=== PATIENT | female | born 1960 | race Caucasian/White ===

== ENCOUNTER → 2016-11-08 | Outpatient (CLI) | payer BC ==
--- NOTE | 2016-11-08 13:59 | RAD ---
HISTORY: Renal colic on left side Study: KUB Comparison: No priors Findings: Moderate stool is present in the right colon. No bowel obstruction is seen. There are surgical clips from cholecystectomy. A 2 millimeter calcific density is present just to the left of the midline low within the pelvis. This is likely vascular. Osseous structures are intact. IMPRESSION: No bowel obstruction seen. 2 millimeter calcific density is present just to the left of the midline low within the pelvis. This is likely vascular. Reported By:
--- NOTE | 2016-11-08 17:08 | CT ---
CT abdomen and pelvis without contrast Indication: Acute left lower quadrant pain Comparison: None available Technique: Multiple axial images of the abdomen and pelvis were obtained from the lung bases to the pubic symphy sis without the administration of IV contrast. Radiation dose reduction techniques were performed utilizing adjustment for MA/kVP based on patient body size. Findings: The lung bases demonstrate mild scarring and compressive atelectasis within the left lower lobe witho ut focal airspace opacity pleural effusion. Given the limitations of a noncontrast examination an norma roximate 4.6 x 4.0 cm cyst is noted within the lateral hepatic segment on axial image 21. Previous ch olecystectomy is no without bile duct dilatation. The spleen, pancreas, adrenal glands and kidneys ar e normal. Upper GI tract demonstrates no evidence of mass or obstruction. There is moderate bowel wal l thickening with enlarged diverticula and surrounding pericolonic fat stranding within the descendin g colon consistent with acute diverticulitis. No localizing fluid collection or free air. The remaini ng colon is unremarkable aside for scattered diverticula. The appendix is normal. Urinary bladder is normal. No pelvic or adnexal mass. No adenopathy within the abdomen or pelvis. Abdominal aorta is nor mal in caliber. Review of bone windows demonstrates no acute osseous abnormality. Impression: 1.Acute diverticulitis within the descending colon without free air or abscess formation. 2. An approximate 4.6 x 4.0 cm cyst within the lateral hepatic segment. 3. Refer to above for other incidental findings. Reported By:
== END | disposition home or self-care (01) ==
LOC: RAD 13:30
PROVIDERS: ATTEND Nurse Practitioner Family
DX: N23 Unspecified renal colic (principal); K57.92 Diverticulitis of intestine, part unspecified, without perforation or abscess without bleeding; K76.89 Other specified diseases of liver
CPT/HCPCS: 74000; 74176

== ENCOUNTER → 2017-02-07 | Outpatient (CLI) | payer BC ==
[~2017-02-07] MED LIST: NS 250 ML IV 250 ML IV ONE
[2017-02-07 11:12] LABS: CREATININE 0.9 mg/dL (0.55-1.02)
--- NOTE | 2017-02-10 11:00 | CT ---
HISTORY: Worsening headache Study: Brain CTA Comparison: No priors Technique: Noncontrast CT of the brain was performed with axial acquisition. Re-acquisition was perfo rmed in the axial plane during IV contrast material administration. Images are reviewed in axial and coronal and sagittal planes. MIP images are provided as well as color 3D images of the intracranial v essels. Dose reduction techniques utilized automatic exposure control. Findings: The noncontrast CT scan of the brain is normal. Ventricular size is normal. No edema, mass or hemorrh age is seen. There is good opacification of the intracranial arteries. No evidence of aneurysm or AVM is seen. The re is no evidence of unusual contrast enhancement. Neither posterior communicating artery is imaged. A small anterior communicating artery is present. No evidence of significant stenotic or occlusive di sease is seen. A mass is not identified. IMPRESSION: Unremarkable CTA of the brain. Reported By:
== END | disposition home or self-care (01) | DRG 951 ==
LOC: RAD 10:35
PROVIDERS: ATTEND Nurse Practitioner Family
DX: Z00.00 Encounter for general adult medical examination without abnormal findings (principal); G44.59 Other complicated headache syndrome; G43.109 Migraine with aura, not intractable, without status migrainosus; R42 Dizziness and giddiness
CPT/HCPCS: 36415; 70496; 82565; 84520